=== PATIENT | female | born 1940 | race Caucasian/White ===

== ENCOUNTER 2017-07-22 10:37 | Emergency (ER) | payer OTHER ==
[~2017-07-22] VITALS: Ht 154.9 cm; Wt 65.0 kg
[~2017-07-22 10:37] MED LIST: CALC-649; VITAMINS PO
[2017-07-22 10:40] VITALS: Ht 154.9 cm; Wt 65.0 kg
[2017-07-22] MEDS ORDERED: ASPIRIN 81 MG TAB PO STA (10:56)
[2017-07-22] MEDS ORDERED: NITROGLYCERIN 2% 1 GM OINT PKT TD STA (10:56)
[2017-07-22] MEDS ORDERED: NITROGLYCERIN (SL) 0.4 MG TAB SL PRN (11:00)
[2017-07-22 11:24] LABS: BASOPHILS % 0.5 % (0.0-2.0); EOSINOPHILS # 0.2 10^3/ul (0.0-0.5); EOSINOPHILS % 2.7 % (0.0-7.0); HEMATOCRIT 42.1 % (37.0-47.0); LYMPHOCYTES # 2.5 10^3/ul (0.8-2.9); LYMPHOCYTES % 37.4 % (15.0-51.0); MEAN CORPUSCULAR HEMOGLOBIN 29.7 pg (29.0-33.0); MEAN CORPUSCULAR HGB CONC 33.3 g/dl (32.0-37.0); MEAN CORPUSCULAR VOLUME 89.2 fl (82.0-101.0); MEAN PLATELET VOLUME 9.3 fl (7.4-10.4); MONOCYTE # 0.4 10^3/ul (0.3-0.9); MONOCYTES % 6.5 % (0.0-11.0); NEUTROPHIL # 3.5 10^3/ul (1.6-7.5); NEUTROPHILS % 52.7 % (39.0-77.0); PLATELET COUNT 266 10^3/UL (140-415); RED BLOOD COUNT 4.72 10^6/ul (4.20-5.40); RED CELL DISTRIBUTION WIDTH 12.3 % (11.5-14.5); WHITE BLOOD COUNT 6.6 10^3/ul (4.8-10.8)
[2017-07-22 11:42] LABS: ANION GAP 10 (8-16); BLOOD UREA NITROGEN 20 mg/dl (7-20); CALCIUM 9.1 mg/dl (8.4-10.2); CARBON DIOXIDE 28 mmol/L (21-31); CHLORIDE 105 mmol/L (97-110); CREATININE 0.82 mg/dl (0.44-1.00); GLUCOSE 90 mg/dl (70-220); POTASSIUM 4.4 mmol/L (3.5-5.1); SODIUM 139 mmol/L (135-144)
--- NOTE | 2017-07-22 11:54 | RADRPT ---
PROCEDURE: XR Chest 1 View. CLINICAL INDICATION: Chest pain TECHNIQUE: AP view of the chest was obtained. COMPARISON: None. FINDINGS: The cardiomediastinal silhouette is within normal limits. Pleural thickening and scarring are identi fied at the left apex. Scattered atelectasis or scarring is seen at the right apex. The lungs are hy perexpanded. Blunting of the bilateral costophrenic angles is seen. Atelectasis is noted in the left lower lobe. Osseous structures are intact. IMPRESSION: Hyperexpanded lungs. Blunting of the bilateral costophrenic angles that may reflect scarring or small pleural effusions. Atelectasis in the left lower lobe. Pleural thickening and scarring at the left apex. Scattered atelectasis or scarring at the right apex. RPTAT: AA .Bert Russell MD, MD Date Time Electronically viewed and signed by .Bert Russell MD, MD on 07/22/2017 11:54 .P/
[2017-07-22 11:59] LABS: TROPONIN-I < 0.012 ng/ml (0.00-0.12)
--- NOTE | 2017-07-22 12:03 | ERD ---
ER Documentation Chief Complaint Date/Time DATE: 07/22/17 TIME: 12:02 Chief Complaint CP HX OF HTN HPI Patient is a 76-year-old female with hypertension who presents with chest pain. The patient was sent to the ER yesterday by her primary doctor Dr. Crow for chest pain but she could not come until today. However today she does not have any chest pain. She said that she felt tired. All night she had chest pain on the left side which radiated into her left shoulder. She does not want to stay in the emergency department. She has had no treatment as of yet. Upon review of old medical records the patient one previous visit to the ER in 2012. ROS All systems reviewed and are negative except as per history of present illness. Medications Home Meds Reported Medications Calcium Carbonate (Calcium) 1 Tab Tablet, PO 12/08/12 [Vitamins] No Conflict Check, PO DAILY 12/08/12 Allergies Allergies: Coded Allergies: No Known Allergy (Unverified , 12/08/12) PMhx/Soc Positive for hypertension Medical and Surgical Hx: pt denies Surgical Hx Hx Alcohol Use: No Hx Substance Use: No Hx Tobacco Use: No Smoking Status: Never smoker Physical Exam Vitals Vital Signs Date Time Temp Pulse Resp B/P Pulse Ox O2 Delivery O2 Flow Rate FiO2 07/22/17 11:14 Nasal Cannula 2 07/22/17 10:40 97.5 63 18 158/67 98 Physical Exam Const: No acute distress Head: Atraumatic Eyes: Normal Conjunctiva ENT: Normal External Ears, Nose and Mouth. Neck: Full range of motion..~ No meningismus. Resp: Clear to auscultation bilaterally Cardio: Regular rate and rhythm, no murmurs Abd: Soft, non tender, non distended. Normal bowel sounds Skin: No petechiae or rashes Back: No midline or flank tenderness Ext: No cyanosis, or edema Neur: Awake and alert Psych: Normal Mood and Affect Result Diagram: 07/22/17 1106 07/22/17 1106 Results 24 hrs Laboratory Tests Test 07/22/17 11:06 White Blood Count 6.610^3/ul Red Blood Count 4.7210^6/ul Hemoglobin 14.0g/dl Hematocrit 42.1% Mean Corpuscular Volume 89.2fl Mean Corpuscular Hemoglobin 29.7pg Mean Corpuscular Hemoglobin Concent 33.3g/dl Red Cell Distribution Width 12.3% Platelet Count 84507^3/UL Mean Platelet Volume 9.3fl Neutrophils % 52.7% Lymphocytes % 37.4% Monocytes % 6.5% Eosinophils % 2.7% Basophils % 0.5% Nucleated Red Blood Cells % 0.0/100WBC Neutrophils # 3.510^3/ul Lymphocytes # 2.510^3/ul Monocytes # 0.410^3/ul Eosinophils # 0.210^3/ul Basophils # 0.010^3/ul Nucleated Red Blood Cells # 0.010^3/ul Sodium Level 139mmol/L Potassium Level 4.4mmol/L Chloride Level 105mmol/L Carbon Dioxide Level 28mmol/L Anion Gap 10 Blood Urea Nitrogen 20mg/dl Creatinine 0.82mg/dl Glucose Level 90mg/dl Calcium Level 9.1mg/dl Troponin I < 0.012ng/ml Current Medications Medications (Trade) Dose Ordered Sig/Cristina Route PRN Reason Start Time Stop Time Status Last Admin Dose Admin Aspirin (Aspirin) 162 mg ONCE STAT PO 07/22/17 10:56 07/22/17 10:58 DC 07/22/17 11:07 Nitroglycerin (Nitroglycerin 2% Oint) 1 inch ONCE STAT TD 07/22/17 10:56 07/22/17 10:58 DC 07/22/17 11:08 Nitroglycerin (Nitroglycerin (Sl Tab) 0.4 Mg) 1 tab Q5M UP TO 3 DOSES PRN SL CHEST PAIN 07/22/17 11:00 07/22/17 11:08 Procedures/MDM EKG #1 read by me: Rate/Rhythm: Regular rate and rhythm at a normal rate Intervals: Normal Impression: No evidence of ischemia or arrhythmia EKG #2 read by me: Rate/Rhythm: Regular rate and rhythm at a normal rate Intervals: Normal Impression: No evidence of ischemia or arrhythmia Chest x-ray shows no pneumonia or pneumothorax per radiology. Patient is a 76-year-old female presents with chest pain. She was given aspirin nitroglycerin. I was concerned about possible acute coronary syndrome given her symptoms and age however she does not want to stay in the hospital. She is going to leave AGAINST MEDICAL ADVICE. She had 2 EKGs which did not show any ischemia and her chest x-ray shows no pneumonia or pneumothorax. Initial troponin was negative. At this point I doubt pneumonia, pneumothorax, pulmonary embolism, or aortic dissection. Please note that I did offer and recommend admission but she did not want to stay in the hospital. She should follow-up with her primary doctor within 24-48 hours for reevaluation. She can return sooner for any worsening symptoms. Departure Diagnosis: Primary Impression: Chest pain Chest pain type: unspecified Qualified Code: R07.9 - Chest pain, unspecified type Condition: Fair Patient Instructions: Chest Pain, Uncertain Cause Referrals: LILLY CROW (PCP) Additional Instructions: Call your primary care doctor TOMORROW for an appointment during the next 1-2 days.See the doctor sooner or return here if your condition worsens before your appointment time. KEN LÓPEZ MD Jul 22, 2017 12:03
[2017-07-22 12:11] VITALS: BP 140/77; PULSE 78; RESP 20
== END 2017-07-22 12:13 | disposition left against medical advice (07) ==
LOC: E/R 10:37
DX: R07.9 Chest pain, unspecified (principal); R40.2342 Coma scale, best motor response, flexion withdrawal, at arrival to emergency department; R40.2142 Coma scale, eyes open, spontaneous, at arrival to emergency department; R40.2252 Coma scale, best verbal response, oriented, at arrival to emergency department; I10 Essential (primary) hypertension
CPT/HCPCS: 36415; 71010; 80048; 84484; 85025; 93005; Z7502; Z7610